=== PATIENT | female | born 1930 | race Caucasian/White ===

== ENCOUNTER 2017-01-04 12:43 | Emergency (ER) | payer MEDICARE, OTHER ==
[2017-01-04] MEDS ORDERED: Ketorolac 30 MG/ML SDV IVPUSH ONE (13:12)
[2017-01-04] MEDS ORDERED: Sodium Chloride 0.9% 10 ML Syringe FLUSH PRN (13:58)
[2017-01-04] MEDS ORDERED: Iopamidol 755 Mg/ML 75 ML Bottle IV ONE (14:15)
[2017-01-04] MEDS ORDERED: Levofloxacin 250 MG Tab PO ONE (15:16)
[2017-01-04] MEDS ORDERED: Phenazopyridine 95 MG Tab PO SCH (15:30)
--- NOTE | 2017-01-04 15:44 | EDM.PDOC ---
ED HPI GENERAL MEDICAL PROBLEM - General Chief Complaint: Abdominal Pain Stated Complaint: ABDOMINAL PAIN Time Seen by Provider: 01/04/17 12:45 Source of Information: Reports: Patient, Family History Limitations: Reports: Physical Impairment - History of Present Illness INITIAL COMMENTS - FREE TEXT/NARRATIVE: 86 y.o.w.f with multiple medical issues, come to the ed due to intermittent pain at the right lower abdomen for about a week, Pt is poor historian. HPI was given by her daughter. S/P GB surgery and Appendectomy. No dysuria, no trauma, last BM yesterday, soft stool, no blood could be in the stool, no flank pain, no H/O kidney stone. No dizziness of lightheadedness or other acute medical issues. BP 155/78 pulse 66 Onset: Unknown/Unsure Onset Date: 12/27/16 Onset Time: 07:00 Duration: Day(s):, Intermittent Location: Reports: Abdomen (RLQ of abdomen) Quality: Reports: Burning, Dull, Pressure Severity: Moderate Improves with: Reports: None Worsens with: Reports: None Context: Reports: Other (unknown) Associated Symptoms: Reports: Other (dysuria) right lower abdomen Pain Score (Numeric/FACES): 8 - Related Data Allergies Allergy/AdvReac Type Severity Reaction Status Date / Time lisinopril Allergy Other Verified 01/04/17 13:18 Home Meds: Home Meds Acetaminophen with Codeine [Tylenol with Codeine #3 Tablet] 1 - 2 tab PO Q6HR PRN 01/04/17 [History] Aspirin [Adult Low Dose Aspirin EC] 81 mg PO DAILY 01/04/17 [History] Ciprofloxacin HCl [Cipro] 500 mg PO BID #20 tablet 01/04/17 [Rx] Metoprolol Succinate [Toprol XL 100mg] 100 mg PO DAILY 01/04/17 [History] Phenazopyridine [Pyridium] 100 mg PO TID #9 tablet 01/04/17 [Rx] Valsartan/Hydrochlorothiazide [Valsartan-Hctz 160-25 mg Tab] 1 each PO DAILY [History] metFORMIN [Glucophage] 500 mg PO DAILY 01/04/17 [History] ED ROS GENERAL - Review of Systems Review Of Systems: Unable To Obtain ED EXAM, GI/ABD - Physical Exam Exam: See Below Exam Limited By: Physical Impairment General Appearance: Alert, Mild Distress, Cachetic Eyes: Bilateral: Normal Appearance Ears: Normal External Exam Nose: Normal Inspection, Normal Mucosa Throat/Mouth: Normal Inspection, Other (poor dentition) Head: Atraumatic, Normocephalic Neck: Normal Inspection, Supple, Non-Tender Respiratory/Chest: No Respiratory Distress, Lungs Clear (poor insp effort) Cardiovascular: Normal Peripheral Pulses, Regular Rate, Rhythm, No Edema GI/Abdominal Exam: Guarding, Rebound, Tender (RLQ of abdomen.) Course - Vital Signs Text/Narrative:: 86 y.o.w.f with multiple medical issues, come to the ed due to intermittent pain at the right lower abdomen for about a week, Pt is poor historian. HPI was given by her daughter. S/P GB surgery and Appendectomy. No dysuria, no trauma, last BM yesterday, soft stool, no blood could be in the stool, no flank pain, no H/O kidney stone. No dizziness of lightheadedness or other acute medical issues. PE: Cachectic 86 y.o.w.f. weak and in obv. pain Labs: WBC 4.6 HGB 12.6 Na 128, K 3.8 UA: UTI Imaging: Bilat diverticulosis, UTI, Dehydration. Renal cyst. Thickening of urinary bladder wall S/O UTI Impression: Bilat diverticulosis, UTI, Dehydration. Renal cyst. Tx: Pyridium, Abx Reexam: Improved Plan: D/C with instructions Last Recorded V/S: Last Vital Signs Temp 36.1 C 01/04/17 12:45 Pulse 67 01/04/17 15:30 Resp 20 01/04/17 15:30 BP 169/58 H 01/04/17 15:30 Pulse Ox 100 01/04/17 15:30 - Orders/Labs/Meds Orders: Active Orders 24 hr Category Date Time Status Peripheral IV Insertion Adult [OM.PC] Routine Oth 01/04/17 13:15 Ordered Labs: Laboratory Tests 01/04/17 01/04/17 01/04/17 Range/Units 13:20 13:23 13:23 WBC 4.6 (4.5-12.0) X10-3/uL RBC 3.62 (3.23-5.20) x10(6)uL Hgb 12.6 (11.5-15.5) g/dL Hct 35.8 (30.0-51.3) % MCV 99.0 H (80-96) fL MCH 34.8 H (27.7-33.6) pg MCHC 35.2 (32.2-35.4) g/dL RDW 15.2 (11.5-15.5) % Plt Count 204 (125-369) X10(3)uL MPV 7.6 (7.4-10.4) fL Neut % (Auto) 64.9 (46-82) % Lymph % (Auto) 22.6 (13-37) % [place] % (Auto) 12.1 H (4-12) % Eos % (Auto) 0 L (1.0-5.0) % Baso % (Auto) 0 (0-2) % Neut # (Auto) 3.0 (1.6-8.3) # Lymph # (Auto) 1.0 (0.6-5.0) # [place] # (Auto) 0.6 (0.0-1.3) # Eos # (Auto) 0.0 (0.0-0.8) # Baso # (Auto) 0.0 (0.0-0.2) # PT 10.9 (8.7-11.1) INR 1.08 (0.89-1.13) Sodium (135-145) mmol/L Potassium (3.5-5.3) mmol/L Chloride (100-110) mmol/L Carbon Dioxide (23-29) mmol/L BUN (8-23) mg/dL Creatinine (0.6-1.3) mg/dL Est Cr Clr Drug Dosing Estimated GFR (MDRD) (>60) BUN/Creatinine Ratio (9-20) Glucose (80-116) mg/dL Calcium (8.6-10.2) mg/dL Total Bilirubin (0.1-1.3) mg/dL Direct Bilirubin (0.1-0.2) mg/dL AST (5-27) IU/L ALT (14-26) IU/L Alkaline Phosphatase (56-112) IU/L B-Natriuretic Peptide 277 H (0-100) pg/mL Total Protein (6.0-8.0) g/dL Albumin (3.2-4.6) g/dL Urine Color (YELLOW) Urine Appearance (CLEAR) Urine pH (5.0-6.5) Ur Specific [place] (1.010-1.025) Urine Protein (NEGATIVE) mg/dL Urine Glucose (UA) (NEGATIVE) mg/dL Urine Ketones (NEGATIVE) mg/dL Urine Occult Blood (NEGATIVE) Urine Nitrite (NEGATIVE) Urine Bilirubin (NEGATIVE) Urine Urobilinogen (NEGATIVE) mg/dL Ur Leukocyte Esterase (NEGATIVE) Urine WBC (0) Ur Squamous Epith Cells (NS,R,O) Urine Bacteria (NS) 01/04/17 01/04/17 Range/Units 13:23 13:45 WBC (4.5-12.0) X10-3/uL RBC (3.23-5.20) x10(6)uL Hgb (11.5-15.5) g/dL Hct (30.0-51.3) % MCV (80-96) fL MCH (27.7-33.6) pg MCHC (32.2-35.4) g/dL RDW (11.5-15.5) % Plt Count (125-369) X10(3)uL MPV (7.4-10.4) fL Neut % (Auto) (46-82) % Lymph % (Auto) (13-37) % [place] % (Auto) (4-12) % Eos % (Auto) (1.0-5.0) % Baso % (Auto) (0-2) % Neut # (Auto) (1.6-8.3) # Lymph # (Auto) (0.6-5.0) # [place] # (Auto) (0.0-1.3) # Eos # (Auto) (0.0-0.8) # Baso # (Auto) (0.0-0.2) # PT (8.7-11.1) INR (0.89-1.13) Sodium 128 L (135-145) mmol/L Potassium 4.5 (3.5-5.3) mmol/L Chloride 92 L (100-110) mmol/L Carbon Dioxide 25 (23-29) mmol/L BUN 11 (8-23) mg/dL Creatinine 0.9 (0.6-1.3) mg/dL Est Cr Clr Drug Dosing TNP Estimated GFR (MDRD) 59 L (>60) BUN/Creatinine Ratio 12.2 (9-20) Glucose 145 H (80-116) mg/dL Calcium 9.4 (8.6-10.2) mg/dL Total Bilirubin 1.1 (0.1-1.3) mg/dL Direct Bilirubin 0.2 (0.1-0.2) mg/dL AST 21 (5-27) IU/L ALT 10 L (14-26) IU/L Alkaline Phosphatase 58 (56-112) IU/L B-Natriuretic Peptide (0-100) pg/mL Total Protein 7.7 (6.0-8.0) g/dL Albumin 4.2 (3.2-4.6) g/dL Urine Color Yellow (YELLOW) Urine Appearance Slightly cloudy (CLEAR) Urine pH 6.0 (5.0-6.5) Ur Specific [place] 1.015 (1.010-1.025) Urine Protein Trace (NEGATIVE) mg/dL Urine Glucose (UA) Normal (NEGATIVE) mg/dL Urine Ketones 15 H (NEGATIVE) mg/dL Urine Occult Blood Negative (NEGATIVE) Urine Nitrite Negative (NEGATIVE) Urine Bilirubin Negative (NEGATIVE) Urine Urobilinogen Normal (NEGATIVE) mg/dL Ur Leukocyte Esterase Small H (NEGATIVE) Urine WBC 5-10 (0) Ur Squamous Epith Cells Few H (NS,R,O) Urine Bacteria Few H (NS) Meds: Medications Discontinued Medications Generic Name Dose Route Start Last Admin Trade Name Freq PRN Reason Stop Dose Admin Iopamidol 75 ml 01/04/17 14:15 01/04/17 14:52 Isovue-370 (76%) IV 01/04/17 14:16 72 ml ASDIRECTED ONE Administration Ketorolac Tromethamine 15 mg 01/04/17 13:12 01/04/17 13:25 Toradol IVPUSH 01/04/17 13:13 15 mg ONETIME ONE Administration Levofloxacin 500 mg 01/04/17 15:16 01/04/17 15:30 Levaquin PO 01/04/17 15:17 500 mg ONETIME ONE Administration Phenazopyridine HCl 95 mg 01/04/17 15:30 01/04/17 15:30 Urinary Pain Relief PO 95 mg TIDPC CAITLIN Administration Sodium Chloride 10 ml 01/04/17 13:58 01/04/17 13:25 Saline Flush FLUSH 10 ml ASDIRECTED PRN Administration Keep Vein Open Departure - Departure Time of Disposition: 15:40 Disposition: Home, Self-Care 01 Condition: Good Clinical Impression: Diverticulosis of colon, Dehydration UTI (urinary tract infection) Qualifiers: Urinary tract infection type: acute cystitis Hematuria presence: without hematuria Qualified Code(s): N30.00 - Acute cystitis without hematuria - Discharge Information Prescriptions: Ciprofloxacin HCl [Cipro] 500 mg PO BID #20 tablet Phenazopyridine [Pyridium] 100 mg PO TID #9 tablet Instructions: Urinary Tract Infection, Adult Referrals: Zachary Arambula MD [Primary Care Provider] - Forms: ED Department Discharge Additional Instructions: Please take the meds as recommended, please f/u, increase watyer intake, please come back if your symptoms get worse acutely - My Orders Last 24 Hours: My Active Orders 01/04/17 13:15 Peripheral IV Insertion Adult [OM.PC] Routine - Assessment/Plan Last 24 Hours: My Active Orders 01/04/17 13:15 Peripheral IV Insertion Adult [OM.PC] Routine
--- NOTE | 2017-01-04 15:47 | CT ---
INDICATION: Right lower quadrant abdominal pain. CT ABDOMEN AND PELVIS WITH CONTRAST: Spiral 2.5-mm axial sections were obtained through the abdomen and pelvis with oral and IV contrast (74 mL Isovue- 370 at 2.2 mL per second), with sagittal and coronal reconstructions 2016. No comparisons were available. Total Exam DLP = 799.63 mGy-cm. The lower lung hinojosa and pleural spaces visualized showed evidence of very minimal fibrosis - linear densities at the lung bases, especially on the left. No active infiltrate or effusion was seen. Coronary artery calcifications are noted. The heart did not appear enlarged. Small fixed hiatal hernia is suggested. The gallbladder is absent, compatible with history of its removal. The liver, adrenal glands, spleen, and pancreas appear normal with common bile duct normal in caliber in the head of the pancreas. Calcifications are noted in the abdominal aorta, splenic arteries, origins of the celiac axis and renal arteries, superior mesenteric artery, iliac, and femoral arteries. The appendix is not visualized, compatible with history of its removal. There appears to be marked thickening of the urinary bladder wall, suggesting severe cystitis. This should be correlated clinically. In the upper pole of the right kidney there is a low-density lesion which is well circumscribed, compatible with a simple cyst measuring 13 mm. A few tiny cysts are also suggested in the left kidney. Renal fascial thickening is noted on the right greater than left, which could be on the basis of previous pyelonephritis with minimal renal cortical scarring suggested bilaterally. Descending and more prominently, sigmoid diverticulosis is noted, without definite evidence of diverticulitis. Minimal diverticulosis appears to be present in the ascending colon additionally. No evidence of free air or bowel obstruction is identified. No specific abnormality in the right lower quadrant is noted to suggest an etiology for the patient's right lower quadrant abdominal pain. Degenerative changes and disk disease are noted fairly severe in the lower thoracic spine and the L2 through S1 lumbosacral spine. No additional mass lesions, organomegaly, or free fluid collections were identified in the abdomen or pelvis. IMPRESSION: 1. No specific abnormality identified to strongly suggest an etiology for the patient's right lower quadrant pain. 2. Renal cortical scarring of mild degree, right greater than left, with small right probable benign cyst and tiny cysts also suggested left kidney. 3. ASD. 4. Post appendectomy. 5. Post cholecystectomy with normal common bile duct caliber. 6. Diverticulosis coli without definite evidence of diverticulitis. 7. Fairly severe thickening of the urinary bladder wall, raising question of severe cystitis - correlate clinically. 8. Minimal lower lung field scarring. 9. Degenerative changes and disk disease appears fairly severe at L2 through S1 , and in the lower thoracic spine. CT PELVIS: Examination of the pelvis was obtained by CT, as noted above. Arterial calcifications are noted. Degenerative changes and disk disease are noted at the lumbosacral spine. The appendix is not seen, compatible with appendectomy. Diverticulosis coli is noted without definite evidence of diverticulitis. Markedly thickened urinary bladder wall raises question of severe cystitis. Report was called to Dr. Mccurdy at 1515 hours, 01/04/2017. [facility]
[2017-01-04 16:49] VITALS: BP 169/58
== END 2017-01-04 15:50 | disposition home or self-care (01) ==
LOC: FB.ED 12:43
DX: N30.00 Acute cystitis without hematuria (principal); K57.10 Diverticulosis of small intestine without perforation or abscess without bleeding; E86.0 Dehydration; Z88.8 Allergy status to other drugs, medicaments and biological substances; Z79.82 Long term (current) use of aspirin; Z79.84 Long term (current) use of oral hypoglycemic drugs
CPT/HCPCS: 36415; 74177; 80048; 80076; 81001; 83880; 85025; 85610; 96374; 99284; A9270; J1885; J7050; Q9967

== ENCOUNTER 2018-01-24 17:14 | Emergency (ER) | payer MEDICARE, OTHER ==
[2018-01-24] MEDS ORDERED: Sodium Chloride 0.9% 10 ML Syringe FLUSH PRN (17:55)
--- NOTE | 2018-01-24 18:04 | EDM.PDOC ---
ED HPI GENERAL MEDICAL PROBLEM - General Chief Complaint: Headache Stated Complaint: DISORIENTED,HEADACHE Time Seen by Provider: 01/24/18 17:59 Source of Information: Reports: Patient, Family History Limitations: Reports: No Limitations - History of Present Illness INITIAL COMMENTS - FREE TEXT/NARRATIVE: Complains of sudden onset headache since this morning associated with nausea. Brought to the ED by family members who state that she is confused. No known injury. No prior history of chronic headaches. Last known well was yesterday morning. Onset: Today Location: Reports: Head Associated Symptoms: Reports: Nausea/Vomiting Head Pain Score (Numeric/FACES): 7 - Related Data Allergies Allergy/AdvReac Type Severity Reaction Status Date / Time lisinopril Allergy Other Verified 01/04/17 13:18 Home Meds: Home Meds Aspirin [Adult Low Dose Aspirin EC] 81 mg PO DAILY 01/04/17 [History] Metoprolol Succinate [Toprol XL 100mg] 100 mg PO DAILY 01/04/17 [History] Valsartan/Hydrochlorothiazide [Valsartan-Hctz 160-25 mg Tab] 1 each PO DAILY [History] metFORMIN [Glucophage] 500 mg PO DAILY 01/04/17 [History] Past Medical History Cardiovascular History: Reports: Hypertension. Denies: CAD, GA Neurological History: Denies: CVA Endocrine/Metabolic History: Reports: Diabetes, Type II Social & Family History - Tobacco Use Smoking Status *Q: Never Smoker - Alcohol Use Alcohol Use History: Yes Alcohol Use Frequency: Daily ED ROS GENERAL - Review of Systems Review Of Systems: See Below Constitutional: Reports: Weakness HEENT: Reports: No Symptoms Respiratory: Reports: No Symptoms Cardiovascular: Reports: No Symptoms Endocrine: Reports: No Symptoms GI/Abdominal: Reports: Nausea. Denies: Vomiting : Reports: No Symptoms Musculoskeletal: Reports: No Symptoms Skin: Reports: No Symptoms Neurological: Reports: Confusion, Headache Psychiatric: Reports: No Symptoms Hematologic/Lymphatic: Reports: No Symptoms Immunologic: Reports: No Symptoms ED EXAM, GENERAL - Physical Exam Exam: See Below Exam Limited By: No Limitations General Appearance: Alert, WD/WN, No Apparent Distress Eye Exam: Bilateral Eye: PERRL Ears: Normal External Exam Nose: Normal Inspection Throat/Mouth: No Airway Compromise Head: Atraumatic, Normocephalic Neck: Supple Respiratory/Chest: No Respiratory Distress, Lungs Clear, Normal Breath Sounds Cardiovascular: Regular Rate, Rhythm, No Murmur, No Rub GI/Abdominal: Soft, No Distention, Tender (mild generalized) (Female) Exam: Deferred Back Exam: Full Range of Motion Extremities: Normal Range of Motion Neurological: Alert, CN II-XII Intact, No Motor/Sensory Deficits, Disoriented, Other (partial gaze palsy (left), ) Skin Exam: Warm, Dry EKG INTERPRETATION EKG Date: 01/24/18 Time: 18:42 Rhythm: NSR Rate (Beats/Min): 86 QRS: RBBB (LAFB) Course - Vital Signs Last Recorded V/S: Last Vital Signs Temp 36.7 C 01/24/18 18:45 Pulse 99 01/24/18 18:45 Resp 18 01/24/18 18:45 BP 140/52 L 01/24/18 18:45 Pulse Ox 98 01/24/18 18:45 - Orders/Labs/Meds Orders: Active Orders 24 hr Category Date Time Status EKG Documentation Completion [RC] ASDIRECTED Care 01/24/18 17:56 Active Head wo Cont [CT] Stat Exams 01/24/18 17:56 Taken CULTURE BLOOD [BC] Urgent Lab 01/24/18 18:06 Received CULTURE BLOOD [BC] Urgent Lab 01/24/18 18:13 Received Sodium Chloride 0.9% [Saline Flush] Med 01/24/18 17:55 Active 10 ml FLUSH ASDIRECTED PRN Blood Culture x2 Reflex Set [OM.PC] Urgent Oth 01/24/18 17:55 Ordered Saline Lock Insert [OM.PC] Routine Oth 01/24/18 17:55 Ordered EKG 12 Lead [EK] Stat Ther 01/24/18 17:55 Ordered Medication Orders Sodium Chloride (Saline Flush) 10 ml FLUSH ASDIRECTED PRN PRN Reason: Keep Vein Open Labs: Laboratory Tests 01/24/18 01/24/18 01/24/18 Range/Units 18:06 18:06 18:06 WBC 7.1 (4.5-12.0) X10-3/uL RBC 3.71 (3.23-5.20) x10(6)uL Hgb 12.9 (11.5-15.5) g/dL Hct 38.5 (30.0-51.3) % MCV 103.7 H (80-96) fL MCH 34.7 H (27.7-33.6) pg MCHC 33.5 (32.2-35.4) g/dL RDW 16.0 H (11.5-15.5) % Plt Count 223 (125-369) X10(3)uL MPV 7.6 (7.4-10.4) fL Add Manual Diff Yes Neutrophils % (Manual) 77 (46-82) % Band Neutrophils % 2 (0-6) % Lymphocytes % (Manual) 15 (13-37) % Monocytes % (Manual) 6 (4-12) % Anisocytosis Moderate H Macrocytosis Moderate H PT 9.9 (8.7-11.1) INR 1.02 (0.89-1.13) Sodium 127 L (135-145) mmol/L Potassium 4.4 (3.5-5.3) mmol/L Chloride 92 L (100-110) mmol/L Carbon Dioxide 28 (21-32) mmol/L BUN 13 (7-18) mg/dL Creatinine 1.1 H (0.55-1.02) mg/dL Est Cr Clr Drug Dosing TNP Estimated GFR (MDRD) 47 L (>60) BUN/Creatinine Ratio 11.8 (9-20) Glucose 141 H (80-116) mg/dL Lactic Acid (0.4-2.2) mmol/L Calcium 9.5 (8.6-10.2) mg/dL Magnesium (1.8-2.5) mg/dL Total Bilirubin 0.8 (0.1-1.3) mg/dL AST 19 (5-25) IU/L ALT 15 (12-36) U/L Alkaline Phosphatase 100 (56-112) IU/L Troponin I (<0.017-0.056) ng/mL Total Protein 8.2 H (6.0-8.0) g/dL Albumin 3.9 (3.2-4.6) g/dL Globulin 4.3 g/dL Albumin/Globulin Ratio 0.9 Urine Color (YELLOW) Urine Appearance (CLEAR) Urine pH (5.0-6.5) Ur Specific [place] (1.010-1.025) Urine Protein (NEGATIVE) mg/dL Urine Glucose (UA) (NEGATIVE) mg/dL Urine Ketones (NEGATIVE) mg/dL Urine Occult Blood (NEGATIVE) Urine Nitrite (NEGATIVE) Urine Bilirubin (NEGATIVE) Urine Urobilinogen (NEGATIVE) mg/dL Ur Leukocyte Esterase (NEGATIVE) Urine RBC (0) Urine WBC (0) Ur Squamous Epith Cells (NS,R,O) Urine Bacteria (NS) Urine Opiates Screen (NEGATIVE) Ur Oxycodone Screen (NEGATIVE) Ur Propoxyphene Screen (NEGATIVE) Ur Barbituates Screen (NEGATIVE) Ur Tricyclics Screen (NEGATIVE) Ur Phencyclidine Scrn (NEGATIVE) Ur Amphetamine Screen (NEGATIVE) Urine MDMA Screen (NEGATIVE) U Benzodiazepines Scrn (NEGATIVE) U Cocaine Metab Screen (NEGATIVE) U Marijuana (THC) Screen (NEGATIVE) Ethyl Alcohol (<0.03) % 01/24/18 01/24/18 01/24/18 Range/Units 18:06 18:06 18:06 WBC (4.5-12.0) X10-3/uL RBC (3.23-5.20) x10(6)uL Hgb (11.5-15.5) g/dL Hct (30.0-51.3) % MCV (80-96) fL MCH (27.7-33.6) pg MCHC (32.2-35.4) g/dL RDW (11.5-15.5) % Plt Count (125-369) X10(3)uL MPV (7.4-10.4) fL Add Manual Diff Neutrophils % (Manual) (46-82) % Band Neutrophils % (0-6) % Lymphocytes % (Manual) (13-37) % Monocytes % (Manual) (4-12) % Anisocytosis Macrocytosis PT (8.7-11.1) INR (0.89-1.13) Sodium (135-145) mmol/L Potassium (3.5-5.3) mmol/L Chloride (100-110) mmol/L Carbon Dioxide (21-32) mmol/L BUN (7-18) mg/dL Creatinine (0.55-1.02) mg/dL Est Cr Clr Drug Dosing Estimated GFR (MDRD) (>60) BUN/Creatinine Ratio (9-20) Glucose (80-116) mg/dL Lactic Acid 1.6 (0.4-2.2) mmol/L Calcium (8.6-10.2) mg/dL Magnesium (1.8-2.5) mg/dL Total Bilirubin (0.1-1.3) mg/dL AST (5-25) IU/L ALT (12-36) U/L Alkaline Phosphatase (56-112) IU/L Troponin I < 0.017 L (<0.017-0.056) ng/mL Total Protein (6.0-8.0) g/dL Albumin (3.2-4.6) g/dL Globulin g/dL Albumin/Globulin Ratio Urine Color (YELLOW) Urine Appearance (CLEAR) Urine pH (5.0-6.5) Ur Specific [place] (1.010-1.025) Urine Protein (NEGATIVE) mg/dL Urine Glucose (UA) (NEGATIVE) mg/dL Urine Ketones (NEGATIVE) mg/dL Urine Occult Blood (NEGATIVE) Urine Nitrite (NEGATIVE) Urine Bilirubin (NEGATIVE) Urine Urobilinogen (NEGATIVE) mg/dL Ur Leukocyte Esterase (NEGATIVE) Urine RBC (0) Urine WBC (0) Ur Squamous Epith Cells (NS,R,O) Urine Bacteria (NS) Urine Opiates Screen (NEGATIVE) Ur Oxycodone Screen (NEGATIVE) Ur Propoxyphene Screen (NEGATIVE) Ur Barbituates Screen (NEGATIVE) Ur Tricyclics Screen (NEGATIVE) Ur Phencyclidine Scrn (NEGATIVE) Ur Amphetamine Screen (NEGATIVE) Urine MDMA Screen (NEGATIVE) U Benzodiazepines Scrn (NEGATIVE) U Cocaine Metab Screen (NEGATIVE) U Marijuana (THC) Screen (NEGATIVE) Ethyl Alcohol < 0.03 (<0.03) % 01/24/18 01/24/18 01/24/18 Range/Units 18:06 19:15 19:15 WBC (4.5-12.0) X10-3/uL RBC (3.23-5.20) x10(6)uL Hgb (11.5-15.5) g/dL Hct (30.0-51.3) % MCV (80-96) fL MCH (27.7-33.6) pg MCHC (32.2-35.4) g/dL RDW (11.5-15.5) % Plt Count (125-369) X10(3)uL MPV (7.4-10.4) fL Add Manual Diff Neutrophils % (Manual) (46-82) % Band Neutrophils % (0-6) % Lymphocytes % (Manual) (13-37) % Monocytes % (Manual) (4-12) % Anisocytosis Macrocytosis PT (8.7-11.1) INR (0.89-1.13) Sodium (135-145) mmol/L Potassium (3.5-5.3) mmol/L Chloride (100-110) mmol/L Carbon Dioxide (21-32) mmol/L BUN (7-18) mg/dL Creatinine (0.55-1.02) mg/dL Est Cr Clr Drug Dosing Estimated GFR (MDRD) (>60) BUN/Creatinine Ratio (9-20) Glucose (80-116) mg/dL Lactic Acid (0.4-2.2) mmol/L Calcium (8.6-10.2) mg/dL Magnesium 1.5 L (1.8-2.5) mg/dL Total Bilirubin (0.1-1.3) mg/dL AST (5-25) IU/L ALT (12-36) U/L Alkaline Phosphatase (56-112) IU/L Troponin I (<0.017-0.056) ng/mL Total Protein (6.0-8.0) g/dL Albumin (3.2-4.6) g/dL Globulin g/dL Albumin/Globulin Ratio Urine Color Yellow (YELLOW) Urine Appearance Clear (CLEAR) Urine pH 8.0 H (5.0-6.5) Ur Specific [place] 1.010 (1.010-1.025) Urine Protein Negative (NEGATIVE) mg/dL Urine Glucose (UA) Normal (NEGATIVE) mg/dL Urine Ketones 15 H (NEGATIVE) mg/dL Urine Occult Blood Negative (NEGATIVE) Urine Nitrite Negative (NEGATIVE) Urine Bilirubin Negative (NEGATIVE) Urine Urobilinogen Normal (NEGATIVE) mg/dL Ur Leukocyte Esterase Negative (NEGATIVE) Urine RBC 0-5 (0) Urine WBC 0-5 (0) Ur Squamous Epith Cells Rare (NS,R,O) Urine Bacteria Few H (NS) Urine Opiates Screen Negative (NEGATIVE) Ur Oxycodone Screen Negative (NEGATIVE) Ur Propoxyphene Screen Negative (NEGATIVE) Ur Barbituates Screen Negative (NEGATIVE) Ur Tricyclics Screen Negative (NEGATIVE) Ur Phencyclidine Scrn Negative (NEGATIVE) Ur Amphetamine Screen Negative (NEGATIVE) Urine MDMA Screen Negative (NEGATIVE) U Benzodiazepines Scrn Negative (NEGATIVE) U Cocaine Metab Screen Negative (NEGATIVE) U Marijuana (THC) Screen Negative (NEGATIVE) Ethyl Alcohol (<0.03) % Meds: Medications Generic Name Dose Route Start Last Admin Trade Name Freq PRN Reason Stop Dose Admin Sodium Chloride 10 ml 01/24/18 17:55 Saline Flush FLUSH ASDIRECTED PRN Keep Vein Open Discontinued Medications Generic Name Dose Route Start Last Admin Trade Name Freq PRN Reason Stop Dose Admin Hydromorphone HCl 0.5 mg 01/24/18 17:57 01/24/18 18:16 Dilaudid IVPUSH 01/24/18 17:58 0.5 mg ONETIME ONE Administration Sodium Chloride 500 mls @ 500 mls/hr 01/24/18 17:55 01/24/18 18:19 Normal Saline IV 01/24/18 18:54 500 mls/hr .BOLUS ONE Administration Thiamine HCl 100 mg/ Sodium 101 mls @ 202 mls/hr 01/24/18 18:49 Chloride IV 01/24/18 18:50 ONETIME ONE Magnesium Sulfate 2 gm/ Premix 50 mls @ 150 mls/hr 01/24/18 19:13 IV 01/24/18 19:32 ONETIME ONE Ondansetron HCl 4 mg 01/24/18 17:57 01/24/18 18:15 Zofran IVPUSH 01/24/18 17:58 4 mg ONETIME ONE Administration - Radiology Interpretation Free Text/Narrative:: Head CT: NAD - Re-Assessments/Exams Free Text/Narrative Re-Assessment/Exam: 01/24/18 20:32 Headache has improved, mental status unchanged. Symptoms consistent with Encephalopathy. Differential diagnosis includes ischemic CVA. Case discussed with Dr. Coombs ([facility]) recommends admitting to medicine service. Dr. Yanez accepts patient for transfer to [facility]. Departure - Departure Time of Disposition: 20:37 Disposition: DC/Tfer to Acute Hospital 02 Condition: Fair Clinical Impression: Altered level of consciousness Cephalgia Qualifiers: Headache type: unspecified Headache chronicity pattern: acute headache Intractability: not intractable Qualified Code(s): R51 - Headache - Discharge Information *PRESCRIPTION DRUG MONITORING PROGRAM REVIEWED*: No *COPY OF PRESCRIPTION DRUG MONITORING REPORT IN PATIENT [place]: Not Applicable Forms: ED Department Discharge - My Orders Last 24 Hours: My Active Orders 01/24/18 17:55 Sodium Chloride 0.9% [Saline Flush] 10 ml FLUSH ASDIRECTED PRN Blood Culture x2 Reflex Set [OM.PC] Urgent Saline Lock Insert [OM.PC] Routine EKG 12 Lead [EK] Stat 01/24/18 17:56 EKG Documentation Completion [RC] ASDIRECTED Head wo Cont [CT] Stat 01/24/18 18:06 CULTURE BLOOD [BC] Urgent 01/24/18 18:13 CULTURE BLOOD [BC] Urgent - Assessment/Plan Last 24 Hours: My Active Orders 01/24/18 17:55 Sodium Chloride 0.9% [Saline Flush] 10 ml FLUSH ASDIRECTED PRN Blood Culture x2 Reflex Set [OM.PC] Urgent Saline Lock Insert [OM.PC] Routine EKG 12 Lead [EK] Stat 01/24/18 17:56 EKG Documentation Completion [RC] ASDIRECTED Head wo Cont [CT] Stat 01/24/18 18:06 CULTURE BLOOD [BC] Urgent 01/24/18 18:13 CULTURE BLOOD [BC] Urgent
[2018-01-24] MEDS: Ondansetron 4 MG/2 ML SDV IVPUSH ONE ×2 (18:15→21:11)
[2018-01-24] MEDS: HYDROmorphone 2 MG/ML SDV IVPUSH ONE (18:16)
[2018-01-24] MEDS: Sodium Chloride 0.9% 500 ML IV ONE (18:19)
[2018-01-24] MEDS: Magnesium Sulfate/Water 2 GM in Premix Bag 1 BAG IV ONE (20:49)
[2018-01-24] MEDS: Thiamine 100 MG in Sodium Chloride 0.9% 100 ML IV ONE (20:50)
[2018-01-24] MEDS ORDERED: Aspirin 81 MG Tab.Chew ONE (21:10)
[2018-01-24] MEDS: Aspirin 81 MG Tab.Chew PO ONE (21:11)
[2018-01-24] MEDS ORDERED: Aspirin 81 MG Tab.Chew PO ONE (21:11)
[2018-01-24] MEDS: Sodium Chloride 0.9% 1,000 ML IV SCH (21:47)
[2018-01-24 22:04] VITALS: BP 127/62
== END 2018-01-24 22:07 ==
LOC: FB.ED 17:14
DX: R41.82 Altered mental status, unspecified (principal); R51 Headache; R11.2 Nausea with vomiting, unspecified; E11.9 Type 2 diabetes mellitus without complications; I10 Essential (primary) hypertension; Z86.73 Personal history of transient ischemic attack (TIA), and cerebral infarction without residual deficits; Z88.8 Allergy status to other drugs, medicaments and biological substances; Z79.82 Long term (current) use of aspirin; Z79.899 Other long term (current) drug therapy; Z79.84 Long term (current) use of oral hypoglycemic drugs
CPT/HCPCS: 36415; 70450; 80053; 80305-QW; 81001; 82962; 83605; 83735; 84484; 85025; 85610; 87040; 93005; 96361; 96365; 96375; 96376; 99285; A9270-GY; G0480; J1170; J2405; J3411; J3475; J7030; J7040